=== PATIENT | male | born 1950 | race Hispanic/Latino ===

== ENCOUNTER 2018-02-12 06:36 | Day surgery (SDC) | payer MEDICARE, BC ==
[2018-02-12] MEDS ORDERED: Etomidate 20 mg/10ml Inj IV ONE (09:21)
[2018-02-12] MEDS ORDERED: Propofol 10 mg/ml Inj (20 ML) ONE (09:22)
[2018-02-12] MEDS ORDERED: Phenylephrine 10 mg/ml Inj ONE (09:40)
[2018-02-12] MEDS ORDERED: cefTRIAXone (Rocephin) 1 gm Inj ONE (09:43)
[2018-02-12] MEDS ORDERED: ePHEDrine 50 mg/ml Inj ONE (10:01)
[2018-02-12] MEDS ORDERED: Sevoflurane - Inhalation Anesthetic Liq (250 ml) ONE (10:29)
[2018-02-12] MEDS ORDERED: HYDROmorphone 0.5 mg/0.5 ml ISec IVP PRN (11:10)
[2018-02-12] MEDS ORDERED: Sodium Chloride 0.9% 1,000 ML IV SCH (11:15)
[2018-02-12 12:05] VITALS: RESP 18; TEMP 97.6
[2018-02-12 12:06] VITALS: BMI 27.3
[2018-02-12 13:40] VITALS: BP 156/94; PULSE 76; O2SAT 97
--- NOTE | 2018-02-13 08:14 | OP ---
PROCEDURE DATE: 02/12/2018 PREOPERATIVE DIAGNOSES: Bladder outlet obstruction, benign prostatic hypertrophy. POSTOPERATIVE DIAGNOSES: Bladder outlet obstruction, benign prostatic hypertrophy. PROCEDURE: Cystoscopy, GreenLight prostate laser vaporization. ATTENDING SURGEON: Carlos Eduardo Hinton MD ANESTHESIA: General. SPECIMENS: There were none. DRAINS: A 20-Irish 3-way Hernández catheter. COMPLICATIONS: There were none. DESCRIPTION OF PROCEDURE: After informed consent was obtained, the patient was taken to the operating room and placed on operating table. Anesthesia was administered. The patient was then placed in the dorsal lithotomy position, and prepped and draped in the usual sterile fashion. The patient received intravenous antibiotics prior to the start of the procedure. A 22-Irish cystoscope was placed in the patient's urethra and advanced under direct vision until the bladder was entered. A full survey inspection of bladder was then performed, which revealed no stones, tumors or foreign bodies of the bladder. The bladder was trabeculated with grade 2 trabeculation, and multiple cellules and small diverticulum noted. The scope was withdrawn to the level of the verumontanum. The prostate was markedly enlarged and occlusive appearing in nature. There was a median lobe growing up into the bladder covering the trigone. With bladder distention, the trigone could be visualized and the ureteral orifices were easily visualized under the middle lobe. At this point, a laser bridge was attached to the scope, a GreenLight laser fiber was obtained, it was passed under direct vision through the scope into the bladder. Under direct vision, the prostate was systematically vaporized. Using the GreenLight laser fiber, the prostate was vaporized starting at the bladder neck proximally, and working into the level of the verumontanum distally. The median lobe was first vaporized in order to make a channel. The median lobe was taken down under direct vision. The lateral lobes and apical tissue were then systematically vaporized, again from the bladder neck proximally to the level of the verumontanum distally. Any bleeding points encountered during the vaporization were controlled using the GreenLight laser. After the vaporization was complete, the irrigation was turned off and field inspected for any bleeding points. Any active bleeding was controlled using the green light laser. When hemostasis was complete, final inspection was made. There was no debris or chips noted in the bladder. The view from the verumontanum now revealed a widely opened bladder neck and prostatic fossa. At this point, the procedure was completed. The cystoscope was withdrawn. A 20-Irish 3-way Hernández catheter was passed and placed to continuous bladder irrigation. The patient tolerated the procedure well and was returned to the supine position, and taken to the recovery room awake in stable condition. Carlos Eduardo Hinton MD
== END 2018-02-12 13:35 | disposition home or self-care (01) ==
LOC: SDS 06:36
PROVIDERS: ATTEND Urology
DX: N40.1 Benign prostatic hyperplasia with lower urinary tract symptoms (principal); N32.0 Bladder-neck obstruction; N13.8 Other obstructive and reflux uropathy; I10 Essential (primary) hypertension
CPT/HCPCS: 52648; A4358; J0696; J1170; J2001; J2370; J2704; J3010; J7040; J7120